=== PATIENT | female | born 1985 | race Caucasian/White ===

== ENCOUNTER 2016-12-05 22:44 | Emergency (ER) | payer MEDICAID ==
[~2016-12-05] VITALS: Ht 157.5 cm; Wt 63.5 kg
[~2016-12-05 22:44] MED LIST: QUETIAPINE FUMA25 M1 PO; RISPERDAL1 M1 PO; TYLENOL; XANAX
[2016-12-05 23:08] VITALS: BP 137/75
--- NOTE | 2016-12-06 01:00 | NUR ---
31Y F BIB SELF FOR REFILL ON MEDICATIONS SHE GOT HERE AT [facility] . PT STATES SHE DOESNT HAVE A PRIMARY HEALTH CARE PROVIDER AND HAS BEEN OUT OF MEDICATION FOR 3 DAYS .PT DENIES N/V/D; SKIN IS PINK/WARM/DRY; AAOX4 WITH EVEN AND STEADY GAIT; LUNGS CLEAR BL; HR EVEN AND REGULAR; PT DENIES ANY FEVER, CP, SOB, OR COUGH AT THIS TIME; PATIENT STATES PAIN OF 0/10 AT THIS TIME; VSS; PATIENT POSITIONED FOR COMFORT; HOB ELEVATED; BEDRAILS UP X2; BED DOWN. ER MD MADE AWARE OF PT STATUS.
--- NOTE | 2016-12-06 02:07 | NUR ---
Patient being evaluated by physician DR CHIRINOS at bedside.
[2016-12-06 02:14] VITALS: BP 124/81
--- NOTE | 2016-12-06 02:15 | NUR ---
Patient discharged with v/s stable. Written and verbal after care instructions given and explained. Patient alert, oriented and verbalized understanding of instructions. Ambulatory with steady gait. All questions addressed prior to discharge. ID band removed. Patient advised to follow up with PMD. Rx of RISPERDAL 1MG AND SEROQUEL 25MG given. Patient educated on indication of medication including possible reaction and side effects. Opportunity to ask questions provided and answered.
== END 2016-12-06 02:15 | disposition home or self-care (01) ==
LOC: MED 22:44
DX: Z76.0 Encounter for issue of repeat prescription (principal); F17.200 Nicotine dependence, unspecified, uncomplicated; Z88.6 Allergy status to analgesic agent

== ENCOUNTER 2017-01-07 14:21 | Emergency (ER) | payer MEDICAID ==
[~2017-01-07] VITALS: Ht 157.5 cm; Wt 69.9 kg
[~2017-01-07 14:21] MED LIST changes: +QUET25TA46 PO; -QUETIAPINE FUMA25 M1 PO; +RISP1TAB1 PO; -RISPERDAL1 M1 PO; -TYLENOL; -XANAX
[2017-01-07 15:01] VITALS: BP 113/81
--- NOTE | 2017-01-07 17:59 | NUR ---
31/F TO ED FOR MED REFILL OF PSYCH MEDS. PT DENIES ANY MEDICAL COMPAINTS. LUNGS CLEAR BILAT. HR EVEN AND REGULAR. AAOX4. VSS. NO SIGNS OF DISTRESS.
[2017-01-07 18:59] VITALS: BP 113/81
--- NOTE | 2017-01-07 18:59 | NUR ---
Patient discharged with v/s stable. Written and verbal after care instructions given and explained. Patient verbalized understanding. Ambulatory with steady gait. All questions addressed prior to discharge. Advised to follow up with PMD.
== END 2017-01-07 18:59 | disposition home or self-care (01) ==
LOC: MED 14:21
DX: Z76.0 Encounter for issue of repeat prescription (principal); F31.9 Bipolar disorder, unspecified; F20.9 Schizophrenia, unspecified
CPT/HCPCS: 96372; 99283; 99284